=== PATIENT | male | born 1985 | race Caucasian/White ===

== ENCOUNTER 2021-02-28 11:40 | Emergency (ER) | payer OTHER ==
[~2021-02-28] VITALS: Ht 170.2 cm; Wt 104.3 kg
[2021-02-28 12:53] LABS: ABSOLUTE NEUTROPHILS 3.7 thou/uL (1.4-8.2); BASOPHILS 0.9 % (0.0-2.0); EOSINOPHILS 0.9 % (0.0-3.0); HEMATOCRIT 45.3 % (42.0-52.0); HEMOGLOBIN 15.4 gm/dL (14.0-18.0); LYMPHOCYTES 27.3 % (24.0-44.0); MCV 88.2 fL (80.0-100.0); MONOCYTES 7.2 % (1.0-8.0); PLATELET COUNT 219 thou/uL (150-400); POLYS 63.7 % (36.0-66.0); RBC 5.14 mil/uL (4.50-6.00); RDW 13.3 % (10.5-14.5); WBC 5.9 thou/uL (4.0-11.0)
[2021-02-28 13:05] LABS: CALCIUM 8.5 mg/dL (8.5-10.1); CREATININE 0.8 mg/dL (0.7-1.3); POTASSIUM 3.7 mmol/L (3.5-5.1)
[2021-02-28 13:14] LABS: ALBUMIN 3.7 g/dL (3.4-5.0); TOTAL BILIRUBIN 0.5 mg/dL (0.2-1.0); TOTAL PROTEIN 7.4 g/dL (6.4-8.2)
[2021-02-28 14:09] VITALS: BP 136/92
--- NOTE | 2021-03-01 07:24 | EKG ---
[facility] [employer] [place] [address] ELECTROCARDIOGRAM REPORT Name: KWAN ROSS Room #: [facility]P [id number] Admission: 02/28/21 Attend Phys: Discharge: 02/28/21 Date of : 83 Report #: [id number] [facility] ED Test Date: 2021-02-28 Test Time: 11:52:31 Pat Name: KWAN ROSS Department: Room: Gender: Baggage Checker: FIDEL : 1985 Requested By: Onofre Vincent Order Number: [id number] MD: Juancarlos Wade Measurements Intervals [place] Rate: 87 P: 51 DC: 171 QRS: 162 QRSD: 98 T: 11 QT: 368 QTc: 443 Interpretive Statements Sinus rhythm Right axis deviation Low voltage, extremity leads Baseline wander in lead(s) V6 No previous ECG available for comparison Electronically Signed On 03-01-2021 7:23:41 CDT by Juancarlos Wade [email or web address] <ELECTRONICALLY SIGNED> By: Juancarlos Wade MD, [facility] 03/01/21 0723 1152 1152 Juancarlos Wade MD, FACC /EPI
== END 2021-02-28 14:09 | disposition home or self-care (01) ==
LOC: ER 11:40
PROVIDERS: Emergency Medicine
DX: R07.89 Other chest pain (principal); Z90.49 Acquired absence of other specified parts of digestive tract; Z98.890 Other specified postprocedural states

== ENCOUNTER → 2021-03-01 | Outpatient (CLI) | payer OTHER | LOC: CAT 14:42 | PROVIDERS: ATTEND Internal Medicine | DX: Z13.6 Encounter for screening for cardiovascular disorders (principal); I25.10 Atherosclerotic heart disease of native coronary artery without angina pectoris; E78.00 Pure hypercholesterolemia, unspecified ==